=== PATIENT | male | born 1970 | race Hispanic/Latino ===

== ENCOUNTER 2022-02-12 11:33 | Inpatient (IN) | payer OTHER, SELFPAY ==
[2022-02-12] MEDS ORDERED: MORPHINE 4 MG/ML SYR ONE (12:17)
[2022-02-12] MEDS ORDERED: ONDANSETRON 4 MG/2 ML VIAL ONE ×2 (12:17→21:21)
[2022-02-12 12:32] LABS: Absolute Lymphocytes (CBC) 1.9 K/uL (0.7-4.9); Hematocrit 40.2 % (39.6-49.0); Lymphocytes % 32.8 % (15.3-44.8); MPV 7.7 fL (7.6-11.3); RBC Red Blood Cell Count 5.09 M/uL (4.33-5.43)
[2022-02-12] MEDS ORDERED: NA CHLORIDE 0.9% 1,000 ML ONE (12:40)
[2022-02-12 12:54] LABS: Bilirubin Total 0.3 mg/dL (0.2-1.0); Potassium 3.7 mmol/L (3.5-5.1); Protein, Total 7.2 g/dL (6.4-8.2)
--- NOTE | 2022-02-12 13:42 | RAD REPORT ---
EXAM DESCRIPTION: CT - Abdomen Pelvis W Contrast - 02/12/2022 1:25 pm CLINICAL HISTORY: Abd pain;Nausea / vomiting, technologist notes history of a pancreatic stent COMPARISON: No comparisons TECHNIQUE: Biphasic, helical CT imaging of the abdomen and pelvis was performed following 100 ml non -ionic IV contrast. No oral contrast was administered. All CT scans are performed using dose optimization technique as appropriate and may include automated exposure control or mA/KV adjustment according to patient size. FINDINGS: No suspicious findings in the lung bases. No liver abnormality seen. Portal vein enhances normally. Gallbladder and biliary tree within normal limits. The pancreatic tail extends into the splenic hilum. There is a 3 x 2 centimeter area of fluid or low -density at the pancreatic tail splenic hilum junction. The roughly wedge-shaped 3 centimeter area of diminished attenuation is present in the anterior portion of the spleen. A minimal amount of strandi ng is seen in the fat adjacent to the pancreatic tail. The uncinate process, head and body of the roderick l show no mass lesion or acute peripancreatic stranding. The pancreatic tail/splenic hilum changes ar e likely the sequela of prior pancreatitis. Small pseudocyst and focal scarring changes are likely. P atient probably has a small area of infarction within the spleen. There is a minimal amount of strand ing that extends from pancreatic tail the greater curvature of the stomach. A mild acute pancreatitis could still be present if there are corresponding clinical or laboratory findings. Symmetric renal function is seen with no hydronephrosis or suspicious renal mass. No pyelonephritis o r acute parenchymal process. No bladder abnormalities. Fullness of the left adrenal gland is present. In the anterior superior aspect of the right adrenal gland there is a 2.2 centimeter low-density mas s. This is probably an incidental adenoma though does not meet strict CT diagnostic criteria on this protocol. No urinary bladder abnormality seen. No gastric dilatation or gastric wall thickening seen. No dilated large or small bowel. Moderate stoo l volume present throughout the colon. Sigmoid diverticulosis is present without diverticulitis. Sigm oid is redundant. Surgical clips are present at the tip of the cecum. No free air, free fluid or pneumatosis. No inflammatory stranding seen. No hernia, mass or bulky l ymphadenopathy. Disc and bone degenerative changes are present in the lower lumbar spine. Mild SI joint degenerative changes are also seen. IMPRESSION: A 3 x 2 cm low-density or fluid collection is present in the splenic hilum at the tail o f the pancreas. There is a minimal amount of stranding in the surrounding peripancreatic tissues. Low-density area within the spleen is probably an area of infarction, sequela of a prior pancreatic t ail process. Current findings are most likely pseudocyst and scarring changes from prior pancreatitis. A minimal c omponent of acute pancreatitis cannot be excluded if there are any corresponding clinical or laborato ry findings. Small 2 centimeter right adrenal mass with incidental adenomas most likely etiology.
--- NOTE | 2022-02-12 14:28 | ER ---
Nurse's Notes [facility] Name: Magno Estrella III Age: 51 yrs Sex: Male : 1970 Arrival Date: 02/12/2022 Time: 11:35 Bed 6 Private MD: Diagnosis: Other acute pancreatitis without necrosis or infection;Vomiting;Dehydration Presentation: 02/12 11:41 Chief complaint: Patient states: "I had a cyst on my pancreas so they put a stent from ab2 the cyst into my stomach to drain about a year ago. Well 2 days ago the same area as the stent started hurting really bad and I've been vomiting, I cant keep nothing down.". Coronavirus screen: Vaccine status: Patient reports being unvaccinated. Client denies travel out of the [place] in the last 14 days. At this time, the client does not indicate any symptoms associated with coronavirus-19. Ebola Screen: Patient negative for fever greater than or equal to 101.5 degrees Fahrenheit, and additional compatible Ebola Virus Disease symptoms Patient denies exposure to infectious person. Patient denies travel to an Ebola-affected area in the 21 days before illness onset. No symptoms or risks identified at this time. Initial Sepsis Screen: Does the patient meet any 2 criteria? No. Patient's initial sepsis screen is negative. Does the patient have a suspected source of infection? No. Patient's initial sepsis screen is negative. Risk Assessment: Do you want to hurt yourself or someone else? Patient reports no desire to harm self or others. Onset of symptoms is unknown. 11:41 Method Of Arrival: Ambulatory ab2 11:41 Acuity: JACOBO 3 ab2 Triage Assessment: 11:43 General: Appears in no apparent distress. uncomfortable, Behavior is calm, cooperative, ab2 appropriate for age. Pain: Complains of pain in epigastric area and left upper quadrant Pain currently is 8 out of 10 on a pain scale. GI: Reports upper abdominal pain, intolerance of fluids, intolerance of food, nausea, vomiting. Historical: - Allergies: 11:41 No Known Allergies; ab2 - PMHx: 11:41 Diabetes mellitus; Pancreatitis; ab2 - Immunization history:: Adult Immunizations up to date, Client reports having NOT received the Covid vaccine. - Social history:: Smoking status: Patient denies any tobacco usage or history of. - Family history:: not pertinent. - Hospitalizations: : No recent hospitalization is reported. Screenin:58 Abuse screen: Denies threats or abuse. Nutritional screening: No deficits noted. ap3 Tuberculosis screening: No symptoms or risk factors identified. Fall Risk No fall in past 12 months (0 pts). No secondary diagnosis (0 pts). No IV (0 pts). Ambulatory Aid- None/Bed Rest/Nurse Assist (0 pts). Gait- Normal/Bed Rest/Wheelchair (0 pts) Mental Status- Oriented to own ability (0 pts). Total Ennis Fall Scale indicates No Risk (0-24 pts). Assessment: 12:00 General: Appears in no apparent distress. Pain: Complains of pain in left upper ap3 quadrant and epigastric area. Neuro: Level of Consciousness is awake, alert, obeys commands, Oriented to person, place, time, situation, Appropriate for age Gait is steady, Speech is normal. Cardiovascular: Patient's skin is warm and dry. Respiratory: Airway is patent Respiratory effort is even, unlabored. GI: Bowel sounds present X 4 quads. Abd is soft X 4 quads Abdomen is tender to palpation in epigastric area Reports upper abdominal pain, nausea, vomiting. 12:03 General: patient reports he has been able to tolerate fluids today, and hasn't vomited ap3 since yesterday. . 12:34 Reassessment: No changes from previously documented assessment. Pain: Pain currently is jg9 8 out of 10 on a pain scale. 14:30 Reassessment: Patient appears in no apparent distress at this time. Patient states jg9 feeling better. Patient states symptoms have improved. Vital Signs: 11:41 BP 145 / 94; Pulse 78; Resp 17; Temp 98.4(TE); Pulse Ox 99% on R/A; Weight 122.47 kg; ab2 Height 5 ft. 10 in. (177.80 cm); Pain 7/10; 13:02 BP 122 / 77; Pulse 70; Pulse Ox 94% on R/A; ap3 14:30 BP 140 / 93; Pulse 73; Resp 16; Pulse Ox 97% on R/A; Pain 5/10; jg9 15:30 BP 121 / 90; Pulse 70; Resp 14; Pulse Ox 98% on R/A; Pain 8/10; jg9 11:41 Body Mass Index 38.74 (122.47 kg, 177.80 cm) ab2 ED Course: 11:35 Patient arrived in ED. as 11:43 Triage completed. ab2 11:44 Arm band placed on right wrist. ab2 11:58 Patient has correct armband on for positive identification. Bed in low position. Call ap3 light in reach. Pulse ox on. NIBP on. 12:00 Lidya Smiley, NARA is Primary Nurse. ap3 12:07 Glen Cruz MD is Attending Physician. rn 12:19 Inserted saline lock: 20 gauge in right antecubital area, using aseptic technique. jg9 Blood collected. 12:34 Resting quietly. jg9 12:38 Flu Sent. ss7 13:27 CT Abd/Pelvis - IV Contrast Only In Process Unspecified. EDMS 14:26 Jose Hayward is Hospitalizing Provider. rn 15:40 Patient requests pain medication. jg9 19:18 Primary Nurse role handed off by Lidya Smiley RN 2 20:04 Danya Canela, NARA is Primary Nurse. lg3 23:15 No provider procedures requiring assistance completed. Patient admitted, IV remains in kd3 place. Administered Medications: 12:22 Drug: Zofran (Ondansetron) 4 mg Route: IVP; Site: right antecubital; jg9 13:23 Follow up: Response: No adverse reaction jg9 12:34 Drug: NS 0.9% 1000 ml Route: IV; Rate: 1000 ml; Site: left antecubital; jg9 12:35 Drug: morphine 4 mg Route: IVP; Site: right antecubital; jg9 13:23 Follow up: Response: No adverse reaction; Pain is decreased jg9 Outcome: 14:27 Decision to Hospitalize by Provider. rn 23:15 Admitted to ICU accompanied by nurse, via wheelchair, room 7, Report called to icu kd3 23:15 Condition: stable 23:15 Discharge instructions given to patient, Instructed on the need for admit. 23:15 Patient left the ED. kd3 Signatures: Dispatcher [employer] EDMonik Aguilar Roman, MD MD rn Prokisch, Amanda, RN RN 3 Delicia Chavis 2 Danya Canela, RN RN 3 Brianna Bull, RN RN kd3 Shanice Bragg, RN RN jg9 Ricardo Milner Shana, RN RN ss7
--- NOTE | 2022-02-12 14:28 | EDPHYS ---
Physician Documentation [facility] Name: Magno Estrella III Age: 51 yrs Sex: Male : 1970 Arrival Date: 02/12/2022 Time: 11:35 Bed 6 Private MD: ED Physician Glen Cruz HPI: 02/12 12:41 This 51 yrs old Male presents to ER via Ambulatory with complaints of rn Abdominal Pain, Vomiting. 12:41 The patient presents to the emergency department with nausea, vomiting, abdominal pain. rn Onset: The symptoms/episode began/occurred 2 day(s) ago. Possible causes: unknown. The symptoms are aggravated by pressure, The symptoms are alleviated by nothing. Associated signs and symptoms: Pertinent positives: abdominal pain, anorexia, nausea, vomiting, Pertinent negatives: GI bleeding. Severity of symptoms: At their worst the symptoms were moderate in the emergency department the symptoms are unchanged. The patient has experienced a previous episode. The patient has not recently seen a physician. Pt reports 2 days of upper abd pain, nausea/vomiting. Hx of pancreatitis with stent "to drain cyst" last year. No episodes since then. no known sick contacts. No fever. NO diarrhea. . Historical: - Allergies: 11:41 No Known Allergies; ab2 - PMHx: 11:41 Diabetes mellitus; Pancreatitis; ab2 - Immunization history:: Adult Immunizations up to date, Client reports having NOT received the Covid vaccine. - Social history:: Smoking status: Patient denies any tobacco usage or history of. - Family history:: not pertinent. - Hospitalizations: : No recent hospitalization is reported. ROS: 12:41 Constitutional: Negative for fever, chills, and weight loss, Eyes: Negative for injury, rn pain, redness, and discharge, Neck: Negative for injury, pain, and swelling, Cardiovascular: Negative for chest pain, palpitations, and edema, Respiratory: Negative for shortness of breath, cough, wheezing, and pleuritic chest pain, Abdomen/GI: Negative for diarrhea, and constipation, Back: Negative for injury and pain, MS/Extremity: Negative for injury and deformity, Skin: Negative for injury, rash, and discoloration, Neuro: Negative for headache, weakness, numbness, tingling, and seizure. Exam: 12:41 Constitutional: This is a well developed, well nourished patient who is awake, alert, rn and in no acute distress. Head/Face: Normocephalic, atraumatic. ENT: dry MM Cardiovascular: Regular rate and rhythm. No pulse deficits. Respiratory: No increased work of breathing, no retractions or nasal flaring. Abdomen/GI: soft, + epigastric abd tenderness, no rebound Skin: Warm, dry MS/ Extremity: Pulses equal, no cyanosis. Neuro: Awake and alert, GCS 15 Vital Signs: 11:41 BP 145 / 94; Pulse 78; Resp 17; Temp 98.4(TE); Pulse Ox 99% on R/A; Weight 122.47 kg; ab2 Height 5 ft. 10 in. (177.80 cm); Pain 7/10; 13:02 BP 122 / 77; Pulse 70; Pulse Ox 94% on R/A; ap3 14:30 BP 140 / 93; Pulse 73; Resp 16; Pulse Ox 97% on R/A; Pain 5/10; jg9 15:30 BP 121 / 90; Pulse 70; Resp 14; Pulse Ox 98% on R/A; Pain 8/10; jg9 11:41 Body Mass Index 38.74 (122.47 kg, 177.80 cm) ab2 MDM: 12:07 Patient medically screened. rn 14:17 ED course: Consulted with Dr. Stevens, states ok to keep here, does not believe he rn needs intervention, will admit to hospitalist service. Requests lipid panel/triglycerides. . 14:25 Differential diagnosis: Nonspecific abd pain, gastritis, pancreatitis, viral rn gastroenteritis, gastroenteritis. Data reviewed: vital signs, nurses notes, lab test result(s), radiologic studies, CT scan, and as a result, I will admit patient. Counseling: I had a detailed discussion with the patient and/or guardian regarding: the historical points, exam findings, and any diagnostic results supporting the discharge/admit diagnosis, lab results, radiology results, the need for further work-up and treatment in the hospital. Response to treatment: the patient's symptoms have mildly improved after treatment, and as a result, I will admit patient. Admission orders: after a detailed discussion of the patient's condition and case, the admit orders are written by me. 02/12 12:08 Order name: CBC with Diff; Complete Time: 13:31 rn 02/12 12:08 Order name: CMP; Complete Time: 13:31 rn 02/12 12:08 Order name: Lipase; Complete Time: 13:31 rn 02/12 12:25 Order name: Flu; Complete Time: 13:31 rn 02/12 14:12 Order name: Lipid Profile; Complete Time: 17:17 rn 02/12 14:17 Order name: COVID-19/FLU A+B (Document "Date of Onset" if Symptomatic); Complete Time: rn 17:17 02/12 12:08 Order name: CT Abd/Pelvis - IV Contrast Only; Complete Time: 13:44 rn 02/12 15:53 Order name: LDL, Direct; Complete Time: 17:17 EDMS 02/12 19:21 Order name: Glucose, Ancillary Testing EDNY 02/12 20:32 Order name: Basic Metabolic Panel EDNY 02/12 21:54 Order name: Glucose, Ancillary Testing EDNY 02/12 23:06 Order name: Glucose, Ancillary Testing EDMS 02/12 12:08 Order name: IV Saline Lock; Complete Time: 12:24 rn 02/12 12:08 Order name: Labs collected and sent; Complete Time: 12:24 rn Administered Medications: 12:22 Drug: Zofran (Ondansetron) 4 mg Route: IVP; Site: right antecubital; jg9 13:23 Follow up: Response: No adverse reaction jg9 12:34 Drug: NS 0.9% 1000 ml Route: IV; Rate: 1000 ml; Site: left antecubital; jg9 12:35 Drug: morphine 4 mg Route: IVP; Site: right antecubital; jg9 13:23 Follow up: Response: No adverse reaction; Pain is decreased jg9 Disposition Summary: 02/12/22 14:27 Hospitalization Ordered Hospitalization Status: Inpatient Admission rn Provider: Jose Hayward rn Condition: Stable rn Problem: new rn Symptoms: have improved rn Bed/Room Type: Standard rn Location: Intensive Care Unit(02/12/22 22:16) cg Room Assignment: 7-(02/12/22 22:16) cg Diagnosis - Other acute pancreatitis without necrosis or infection rn - Vomiting rn - Dehydration rn Forms: - Medication Reconciliation Form rn - SBAR form rn Signatures: Dispatcher [employer] EDMS DirriTiesha story Roman, MD MD rn Garcia, Cindy, RN RN cg Shanice Bragg RN RN jg9 Ricardo Milner Corrections: (The following items were deleted from the chart) 14: Telemetry/MedSurg (Inpatient) rn bd 18: 14: [place] bd : 18: [facility] ER HOLD bd : 18:01 ERHOLD- bd cg
[2022-02-12 15:48] LABS: HDL Cholesterol 31 mg/dL (40-60)
[2022-02-12 15:59] LABS: LDL, Direct 147 mg/dL (100-129)
--- NOTE | 2022-02-12 16:26 | P.HP ---
Certification for Inpatient Patient admitted to: Inpatient With expected LOS: >2 Midnights Practitioner: I am a practitioner with admitting privileges, knowledge of patient current condition, hospital course, and medical plan of care. Services: Services provided to patient in accordance with Admission requirements found in Title 42 Section 412.3 of the Code of Federal Regulations Patient History Date of Service: 02/12/22 Reason for admission: Epigastric pain History of Present Illness: 51-year-old gentleman with a known history of diabetes mellitus type 2, hereditary hypertriglyceridemia, history of pancreatitis complicated with pseudocyst, status post stent/drain presented to the emergency department with a complaint of epigastric pain of onset last night. Patient was concerned he was having another episode of acute pancreatitis. He reported associated nausea and vomiting, no reported fever. Imaging done in the emergency department demonstrated inflammation of the tail of the pancreas, 3 cm pseudocyst and a possible small splenic infarct. Case discussed with Dr. Stevnes will suspect pseudocyst is a remnant of the previous cyst. Patient triglyceride level is elevated up to 900, lipase level within normal. Patient is admitted for further management of hypertriglyceride induced acute pancreatitis. - Past Medical/Surgical History Diabetic: Yes -: Diabetes mellitus type 2 -: Hypertriglyceridemia -: Hypertension -: History of pancreatitis -: Pancreatic pseudocyst drainage - Family History Father -: Diabetes Mother -: Diabetes - Social History Smoking Status: Former smoker Alcohol use: No CD- Drugs: No Place of Residence: Home Review of Systems Other: Except as documented, all other systems reviewed and negative. Physical Examination - Physical Exam General: Alert, In no apparent distress, Oriented x3 HEENT: Normocephalic, Mucous membr. moist/pink, Sclerae nonicteric Neck: Supple, JVD not distended Respiratory: Clear to auscultation bilaterally, Normal air movement Cardiovascular: No edema, Regular rate/rhythm, Normal S1 S2, No murmurs Capillary refill: <2 Seconds Gastrointestinal: Normal bowel sounds, Soft and benign, Non-distended, No tenderness Musculoskeletal: No swelling, No tenderness Integumentary: No rashes, No erythema, No cyanosis Neurological: Normal speech, Normal strength at 5/5 x4 extr, Cranial nerves 3-12 intact Lymphatics: No axilla or inguinal lymphadenopathy - Studies Laboratory Data (last 24 hrs) 02/12/22 15:05: Triglycerides 919 H, Cholesterol 283 H, LDL Cholesterol Direct 147 H, HDL Cholesterol 31 L, Cholesterol/HDL Ratio 9.13 02/12/22 12:20: Sodium 129 L, Potassium 3.7, BUN 12, Creatinine 1.01, Glucose 548 H*, Total Bilirubin 0.3, AST 14 L, ALT 24, Alkaline Phosphatase 107, Lipase 124 02/12/22 12:20: WBC 5.90, Hgb 13.2 L, Hct 40.2, Plt Count 214 Microbiology Data (last 24 hrs): 02/12/22 12:35 Nasopharnyx Influenza Type A Antigen Screen - Final 02/12/22 12:35 Nasopharnyx Influenza Type B Antigen Screen - Final Assessment and Plan - Problems (Diagnosis) (1) Acute pancreatitis Current Visit: Yes Status: Acute (2) Hypertriglyceridemia Current Visit: Yes Status: Acute (3) DM type 2 (diabetes mellitus, type 2) Current Visit: Yes Status: Acute (4) Morbid obesity Current Visit: Yes Status: Acute - Plan Admit patient to the ICU. Acute pancreatitis likely secondary to hypertriglyceridemia. Patient noncompliant with his gemfibrozil. Start insulin drip for severe hypertriglyceridemia. Monitor triglyceride level daily Monitor blood sugar every hour while on the insulin drip Supportive measures for acute pancreatitis. Keep n.p.o. Aggressive IV fluid. Hold Metformin for now. Monitor lipase level. Empiric antibiotics. - Advance Directives Does patient have a Living Will: No Does patient have a Durable POA for Healthcare: No
[2022-02-12 17:14] LABS: SARS-COV-2 RT PCR NEGATIVE (NEGATIVE)
[2022-02-12] MEDS ORDERED: MORPHINE 2 MG/ML SYR IV PRN (18:46)
[2022-02-12] MEDS ORDERED: NA CHLORIDE 0.9% 1,000 ML IV ONE (18:46)
[2022-02-12] MEDS ORDERED: ONDANSETRON 4 MG/2 ML VIAL IV PRN (18:46)
[2022-02-12] MEDS ORDERED: ACETAMINOPHEN 500 MG TAB PO PRN (18:46)
[2022-02-12] MEDS ORDERED: MORPHINE 2 MG/ML SYR ONE (18:53)
[2022-02-12 19:00] VITALS: BMI 37.6
[2022-02-12] MEDS ORDERED: INSULIN -REGULAR HUMAN 100 UNIT in NA CHLORIDE 0.9% 100 ML IV SCH (19:00)
[2022-02-12 20:32] LABS: BUN Blood Urea Nitrogen 10 mg/dL (7-18); Bicarbonate 29 mmol/L (21-32); Glucose Level 277 mg/dL (74-106); Potassium 3.5 mmol/L (3.5-5.1); Sodium Level 135 mmol/L (136-145)
[2022-02-12] MEDS ORDERED: HYDROMORPHONE HCL 0.5 MG/0.5 ML INJ ONE (21:21)
[2022-02-12] MEDS: HYDROMORPHONE HCL 1 MG/ML INJ IV PRN (21:23)
[2022-02-12] MEDS: NA CHLORIDE 0.9% 1,000 ML IV SCH (23:37)
[2022-02-12] MEDS: ENOXAPARIN 40 MG/0.4 ML SQ SCH (23:38)
[2022-02-12] MEDS: CEFTRIAXONE 1,000 MG in NA CHLORIDE 0.9% 50 ML IVPB SCH (23:38)
[2022-02-13 00:28] VITALS: O2SAT 98
[2022-02-13] MEDS: HYDROMORPHONE HCL 1 MG/ML INJ IV PRN ×5 (01:25→20:35)
[2022-02-13] MEDS: NA CHLORIDE 0.9% 1,000 ML IV SCH ×2 (02:46→09:10)
[2022-02-13] MEDS ORDERED: INSULIN -REGULAR HUMAN 50 UNIT/0.5 ML ML ONE (05:16)
[2022-02-13] MEDS ORDERED: NA CHLORIDE 0.9% 100 ML ONE (05:17)
[2022-02-13 05:18] LABS: Absolute Lymphocytes (CBC) 2.5 K/uL (0.7-4.9); Hematocrit 37.7 % (39.6-49.0); Lymphocytes % 43.4 % (15.3-44.8); MPV 7.7 fL (7.6-11.3); RBC Red Blood Cell Count 4.82 M/uL (4.33-5.43)
[2022-02-13 05:40] LABS: BUN Blood Urea Nitrogen 9 mg/dL (7-18); Bicarbonate 31 mmol/L (21-32); Glucose Level 359 mg/dL (74-106); Phosphorus 3.3 mg/dL (2.5-4.9); Sodium Level 136 mmol/L (136-145)
[2022-02-13 05:41] LABS: Magnesium 2.2 mg/dL (1.8-2.4)
[2022-02-13 06:00] LABS: LDL, Direct 120 mg/dL (100-129)
[2022-02-13] MEDS ORDERED: INFLUENZA VACCINE (for 6+ mo) 0.5 ML DOSE IMVAC ONE (08:00)
[2022-02-13] MEDS: ENOXAPARIN 40 MG/0.4 ML SQ SCH (09:09)
[2022-02-13] MEDS: CEFTRIAXONE 1,000 MG in NA CHLORIDE 0.9% 50 ML IVPB SCH (09:09)
[2022-02-13] MEDS: D5 0.9 NS 1,000 ML IV SCH ×2 (09:59→22:25)
--- NOTE | 2022-02-13 12:37 | P.PN ---
Subjective Date of Service: 02/13/22 Chief Complaint: Epigastric pain Patient was supposed to be n.p.o. but he ate a [employer] sandwich last night. No abdominal pain or discomfort after eating the sandwich. Lipase level was normal on admission. Triglyceride level trended up despite being on insulin drip. He is complaining of some epigastric discomfort this morning. Physical Examination - Vital Signs Temperature: 96.7 F Blood Pressure: 144/90 Pulse: 63 Respirations: 18 Pulse Ox (%): 99 - Physical Exam General: Alert, In no apparent distress, Oriented x3, Obese HEENT: Mucous membr. moist/pink Neck: JVD not distended Respiratory: Clear to auscultation bilaterally, Normal air movement Cardiovascular: Regular rate/rhythm, Normal S1 S2 Gastrointestinal: Normal bowel sounds, Soft and benign, Non-distended, No tenderness Musculoskeletal: No swelling, No tenderness Integumentary: No rashes, No cyanosis Neurological: Normal strength at 5/5 x4 extr, Cranial nerves 3-12 intact - Studies Laboratory Data (last 24 hrs) 02/12/22 15:05: Triglycerides 919 H, Cholesterol 283 H, LDL Cholesterol Direct 147 H, HDL Cholesterol 31 L, Cholesterol/HDL Ratio 9.13 02/12/22 12:20: Sodium 129 L, Potassium 3.7, BUN 12, Creatinine 1.01, Glucose 548 H*, Total Bilirubin 0.3, AST 14 L, ALT 24, Alkaline Phosphatase 107, Lipase 124 02/12/22 12:20: WBC 5.90, Hgb 13.2 L, Hct 40.2, Plt Count 214 Microbiology Data (last 24 hrs): 02/12/22 12:35 Nasopharnyx Influenza Type A Antigen Screen - Final 02/12/22 12:35 Nasopharnyx Influenza Type B Antigen Screen - Final Assessment And Plan - Current Problems (Diagnosis) (1) Acute pancreatitis Current Visit: Yes Status: Acute (2) Hypertriglyceridemia Current Visit: Yes Status: Acute (3) DM type 2 (diabetes mellitus, type 2) Current Visit: Yes Status: Acute (4) Morbid obesity Current Visit: Yes Status: Acute - Plan Acute pancreatitis likely secondary to hypertriglyceridemia. Symptoms have improved. Hypertriglyceridemia has not responded to insulin drip. Patient stated his baseline triglyceride level is around 1200. Continue insulin drip, check another triglyceride level tonight for any response. Keep n.p.o. except ice chips and water on the insulin drip Monitor blood sugar every hour while on the insulin drip Continue supportive measures for acute pancreatitis. Hold Metformin for now. Monitor lipase level. Discontinue antibiotics.
[2022-02-13 18:08] LABS: BUN Blood Urea Nitrogen 9 mg/dL (7-18); Bicarbonate 27 mmol/L (21-32); Glucose Level 249 mg/dL (74-106); Potassium 3.7 mmol/L (3.5-5.1); Sodium Level 135 mmol/L (136-145)
[2022-02-13 19:03] LABS: LDL, Direct 124 mg/dL (100-129)
[2022-02-13] MEDS: HYDRALAZINE HCL 10 MG TABLET PO PRN (22:43)
[2022-02-14] MEDS: HYDROMORPHONE HCL 1 MG/ML INJ IV PRN (00:27)
[2022-02-14 04:18] VITALS: TEMP 96.9
[2022-02-14 05:38] LABS: BUN Blood Urea Nitrogen 6 mg/dL (7-18); Bicarbonate 29 mmol/L (21-32); Glucose Level 262 mg/dL (74-106); Potassium 3.3 mmol/L (3.5-5.1); Sodium Level 136 mmol/L (136-145)
[2022-02-14 05:45] LABS: LDL, Direct 129 mg/dL (100-129)
[2022-02-14] MEDS ORDERED: KCL 20 MEQ/100 mL IVPB 20 MEQ/100 ML BAG IV SCH (07:00)
[2022-02-14] MEDS ORDERED: POTASSIUM 25 MEQ EFFERV TAB PO ONE (08:00)
[2022-02-14] MEDS: ENOXAPARIN 40 MG/0.4 ML SQ SCH (09:00)
[2022-02-14] MEDS: HYDRALAZINE HCL 10 MG TABLET PO PRN (12:57)
[2022-02-14] MEDS ORDERED: INSULIN GLARGINE 100 UNIT/ML SQ ONE (13:00)
--- NOTE | 2022-02-14 14:52 | P.DS ---
Admission Date: 02/12/22 Discharge Date: 02/14/22 Disposition: ROUTINE DISCHARGE Discharge Condition: FAIR Reason for Admission: Epigastric pain - Problems (1) Acute pancreatitis Current Visit: Yes Status: Acute (2) Hypertriglyceridemia Current Visit: Yes Status: Acute (3) DM type 2 (diabetes mellitus, type 2) Current Visit: Yes Status: Acute (4) Morbid obesity Current Visit: Yes Status: Acute Brief History of Present Illness: 51-year-old gentleman with a known history of diabetes mellitus type 2, hereditary hypertriglyceridemia, history of pancreatitis complicated with pseudocyst, status post stent/drain presented to the emergency department with a complaint of epigastric pain of onset last night. Patient was concerned he was having another episode of acute pancreatitis. He reported associated nausea and vomiting, no reported fever. Imaging done in the emergency department demonstrated inflammation of the tail of the pancreas, 3 cm pseudocyst and a possible small splenic infarct. Case discussed with Dr. Stevens will suspect pseudocyst is a remnant of the previous cyst. Patient triglyceride level is elevated up to 900, lipase level within normal. Patient is admitted for further management of hypertriglyceride induced acute pancreatitis. Hospital Course: Patient admitted to the ICU and started on insulin drip for the severe hypertriglyceridemia. He was also treated with supportive measures with IV fluid, pain medications as needed and antiemetics and and kept n.p.o. for acute pancreatitis. Lipase level was normal. Patient's triglyceride level responded to the insulin drip and level peaked at 1200 and then decreased to 600. Patient symptoms resolved. He tolerated meals without any symptoms. He states that he has improved to baseline, vitals are stable and he is deemed stable for discharge.. Patient given a refill of gemfibrozil. He is informed to continue his home insulin regimen and advised to be compliant with medication and blood sugar monitoring. Vital Signs/Physical Exam: Temp Pulse Resp BP Pulse Ox 96.9 F 79 14 131/90 98 02/14/22 08:00 02/14/22 12:00 02/14/22 12:00 02/14/22 11:00 02/14/22 12:00 General: Alert, In no apparent distress, Oriented x3 HEENT: Mucous membr. moist/pink Neck: JVD not distended Respiratory: Clear to auscultation bilaterally, Normal air movement Cardiovascular: No edema, Regular rate/rhythm, Normal S1 S2 Gastrointestinal: Normal bowel sounds, Soft and benign, Non-distended, No tenderness Musculoskeletal: No swelling Integumentary: No rashes Neurological: Normal strength at 5/5 x4 extr Laboratory Data at Discharge: WBC 5.70 K/uL (4.3-10.9) 02/13/22 04:47 Hgb 12.5 g/dL (13.6-17.9) L 02/13/22 04:47 Hct 37.7 % (39.6-49.0) L 02/13/22 04:47 Plt Count 177 K/uL (152-406) 02/13/22 04:47 Sodium 136 mmol/L (136-145) 02/14/22 05:01 Potassium 3.3 mmol/L (3.5-5.1) L 02/14/22 05:01 BUN 6 mg/dL (7-18) L 02/14/22 05:01 Creatinine 0.63 mg/dL (0.55-1.3) 02/14/22 05:01 Glucose 262 mg/dL (74-106) H 02/14/22 05:01 Phosphorus 3.3 mg/dL (2.5-4.9) 02/13/22 04:47 Magnesium 2.2 mg/dL (1.8-2.4) 02/13/22 04:47 Total Bilirubin 0.3 mg/dL (0.2-1.0) 02/12/22 12:20 AST 14 U/L (15-37) L 02/12/22 12:20 ALT 24 U/L (12-78) 02/12/22 12:20 Alkaline Phosphatase 107 U/L (45-117) 02/12/22 12:20 Triglycerides 608 mg/dL (<150) H 02/14/22 05:01 Cholesterol 283 mg/dL (<200) H 02/12/22 15:05 LDL Cholesterol Direct 129 mg/dL (100-129) 02/14/22 05:01 HDL Cholesterol 31 mg/dL (40-60) L 02/12/22 15:05 Cholesterol/HDL Ratio 9.13 02/12/22 15:05 Lipase 124 U/L (73-393) 02/12/22 12:20 Home Medications: Insulin 70/30 NPH/Reg Human [Novolin 70/30*] 55 unit SQ DAILY 02/12/22 Metformin HCl 1 tab PO BID 02/12/22 Lisinopril [Zestril] 20 mg PO DAILY 02/13/22 gemfibroziL [Gemfibrozil] 600 mg PO BID #60 tablet 02/14/22 New Medications: gemfibroziL [Gemfibrozil] 600 mg PO BID #60 tablet Diet: ADA Activity: Ad la Followup: NONE,NONE [Primary Care Provider] - 1-2 Weeks Time spent managing pt's care (in minutes): 37
[2022-02-14 15:11] VITALS: BP 152/98
== END 2022-02-14 16:00 | disposition home or self-care (01) | DRG 439 ==
LOC: ER 11:33 → ERHOLD 16:08 → 3RD-ICU 22:47
PROVIDERS: ADMIT Internal Medicine; ATTEND Internal Medicine
DX: K85.90 Acute pancreatitis without necrosis or infection, unspecified (principal); K86.3 Pseudocyst of pancreas; E78.1 Pure hyperglyceridemia; E11.9 Type 2 diabetes mellitus without complications; E66.01 Morbid (severe) obesity due to excess calories; Z68.35 Body mass index [BMI] 35.0-35.9, adult; Z20.822 Contact with and (suspected) exposure to COVID-19; Z91.14 Patient's other noncompliance with medication regimen; Z79.4 Long term (current) use of insulin
CPT/HCPCS: 0240U; 36415; 74177; 80048; 80053; 80061; 82947; 83690; 83735; 84100; 84443; 84478; 85025; 87804; 96374; 96375; 99285; J1170; J1650; J2270; J2405; J7030; J7042; Q9967

== ENCOUNTER 2022-03-27 19:10 | Emergency (ER) | payer SELFPAY ==
[2022-03-27] MEDS ORDERED: NA CHLORIDE 0.9% 1,000 ML ONE (20:11)
[2022-03-27] MEDS ORDERED: FAMOTIDINE 20 MG/2 ML VIAL IV ONE (20:11)
[2022-03-27] MEDS ORDERED: MORPHINE 4 MG/ML SYR ONE ×2 (20:11→21:56)
[2022-03-27] MEDS ORDERED: ONDANSETRON 4 MG/2 ML VIAL ONE (20:11)
[2022-03-27 20:37] LABS: Absolute Lymphocytes (CBC) 1.9 K/uL (0.7-4.9); Hematocrit 41.9 % (39.6-49.0); Lymphocytes % 24.9 % (15.3-44.8); MPV 7.3 fL (7.6-11.3); RBC Red Blood Cell Count 5.42 M/uL (4.33-5.43)
[2022-03-27 20:53] LABS: ALT/SGPT 19 U/L (12-78); AST/SGOT 12 U/L (15-37); Albumin 3.8 g/dL (3.4-5.0); Alkaline Phosphatase 109 U/L (45-117); BUN Blood Urea Nitrogen 11 mg/dL (7-18); Bicarbonate 26 mmol/L (21-32); Bilirubin Total 0.4 mg/dL (0.2-1.0); Glucose Level 267 mg/dL (74-106); Lipase 403 U/L (73-393); Magnesium 2.1 mg/dL (1.8-2.4); Potassium 3.8 mmol/L (3.5-5.1); Sodium Level 135 mmol/L (136-145); Troponin High Sensitivity 5.5 pg/mL (<58.9)
--- NOTE | 2022-03-27 21:08 | RAD REPORT ---
EXAM DESCRIPTION: CTAbdomen Pelvis W Contrast - 03/27/2022 8:43 pm CLINICAL HISTORY: Epigastric pain COMPARISON: Abdomen Pelvis W Contrast dated 02/12/2022 TECHNIQUE: CT of the abdomen and pelvis was performed. All CT scans are performed using dose optimization technique as appropriate and may include automated exposure control or mA/KV adjustment according to patient size. FINDINGS: Lower chest: No acute abnormality. Liver: No acute abnormality or suspicious lesions. Biliary: No biliary ductal dilatation. Stomach: There is thickening of the gastric wall in particular along the greater curvature. Loculated fluid also present along the pancreatic tail and inferior margin in the stomach. No drainable collec tion. Duodenum: No significant focal abnormality. Pancreas: No evidence of acute pancreatitis. Fluid collection near the tail of the pancreas along the stomach. Spleen: Small remote splenic infarct. Trace fluid along the spleen. Adrenal: 2.3 cm right adrenal nodules unchanged. Kidney/ureter: No hydronephrosis. No renal calculi. Retroperitoneum: No retroperitoneal adenopathy. Vascular: No aneurysm. Bowel: Appendectomy. Multiple air-fluid levels in the central abdomen. None measure over 2 cm. .. Peritoneum: No ascites or free air. Bladder: Grossly unremarkable. Reproductive: No adnexal masses. Bones: No acute fracture. Other: n/a IMPRESSION: Diffusely thickened gastric body with small complex fluid collections along the lower ma rgin of the stomach. The fluid collections could be secondary to pancreatitis and pseudocysts or seco ndary to pathology at the stomach. Recommend endoscopy for further evaluation. Small bowel dilatation without transition point likely representing ileus. Indeterminate right adrenal nodule is unchanged. Statistically this is benign.
[2022-03-27 21:40] LABS: Urine Blood Trace-intact (Negative); Urine Glucose 2+ (Negative); Urine Protein Negative (Negative); Urine Specific Gravity 1.025 (1.005-1.030)
[2022-03-27 22:22] LABS: Barbiturates NEGATIVE (NEGATIVE); Benzodiazepines NEGATIVE (NEGATIVE); Cocaine POSITIVE (NEGATIVE); METHAMPHETAM NEGATIVE (NEGATIVE); Methadone NEGATIVE (NEGATIVE); Opiates NEGATIVE (NEGATIVE); Phencyclidine NEGATIVE (NEGATIVE); THC Cannibis POSITIVE (NEGATIVE)
[2022-03-27 22:27] LABS: Urine Bacteria <20 /HPF (NONE SEEN)
--- NOTE | 2022-03-27 22:43 | EDPHYS ---
Physician Documentation [facility] Name: Magno Estrella III Age: 51 yrs Sex: Male : 1970 Arrival Date: 03/27/2022 Time: 19:12 Bed 8 Private MD: ED Physician José Miguel Rooney HPI: 03/27 19:35 This 51 yrs old Male presents to ER via Ambulatory with complaints of Nausea, cp Abdominal Pain. 19:35 The patient presents to the emergency department with nausea, that is moderate, cp vomiting, that is intermittent, described as bilious, abdominal pain, of the epigastric area. Onset: The symptoms/episode began/occurred yesterday, and became worse today. 19:35 Associated signs and symptoms: Pertinent negatives: constipation, diarrhea, fever, GI cp bleeding. 19:35 Patient reports history of pancreatitis in the past but denies due to alcohol use. cp Patient reports using cocaine 3 days ago. Nausea and vomiting started yesterday at work. Thought it was due to working outside in heat. Historical: - Allergies: 19:24 No Known Allergies; lp1 - Home Meds: 19:24 insulin 70/30 55 unit daily [Active]; metformin 1,000 mg Oral tab 1 tab daily [Active]; lp1 lisinopril 20 mg Oral tab 1 tab once daily [Active]; - PMHx: 19:24 diabetes mellitus; Hypertensive disorder; Pancreatitis; High Triglycerides; lp1 - PSHx: 19:24 None; lp1 - Immunization history:: Adult Immunizations up to date. - Social history:: Smoking status: Patient denies any tobacco usage or history of. Patient uses street drugs, marijuana. ROS: 19:40 Constitutional: Negative for body aches, chills, fever, poor PO intake. cp 19:40 Abdomen/GI: Positive for abdominal pain, nausea, vomiting, of the epigastric area, Negative for diarrhea, constipation, hematemesis. 19:40 Cardiovascular: Positive for chest pain, Negative for palpitations. cp 19:40 Eyes: Negative for injury, pain, redness, and discharge. cp 19:40 ENT: Negative for drainage from ear(s), ear pain, sore throat, difficulty swallowing, difficulty handling secretions. 19:40 Respiratory: Negative for cough, shortness of breath, wheezing. 19:40 Back: Negative for injury or acute deformity, decreased range of motion. 19:40 Neuro: Negative for altered mental status, dizziness, headache, weakness. 19:40 All other systems are negative. Exam: 19:45 Constitutional: The patient appears in no acute distress, alert, awake, cp non-diaphoretic, non-toxic, well developed, well nourished. 19:45 Head/Face: Normocephalic, atraumatic. cp 19:45 Eyes: Periorbital structures: appear normal, Conjunctiva: normal, no exudate, no injection, Sclera: no appreciated abnormality, Lids and lashes: appear normal, bilaterally. 19:45 ENT: External ear(s): are unremarkable, Nose: is normal, Mouth: Lips: moist, Oral mucosa: moist, Posterior pharynx: Airway: no evidence of obstruction, patent. 19:45 Neck: ROM/movement: is normal, is supple, without pain, no range of motions limitations. 19:45 Chest/axilla: Inspection: normal, Palpation: is normal, no crepitus, no tenderness. 19:45 Cardiovascular: Rate: normal, Rhythm: regular. 19:45 Respiratory: the patient does not display signs of respiratory distress, Respirations: normal, no use of accessory muscles, no retractions, labored breathing, is not present, Breath sounds: are clear throughout, no decreased breath sounds, no stridor, no wheezing. 19:45 Abdomen/GI: Inspection: abdomen appears normal, Bowel sounds: active, all quadrants, Palpation: soft, in all quadrants, moderate abdominal tenderness, in the epigastric area, rebound tenderness, is not appreciated, voluntary guarding, is elicited in the epigastric area. 19:45 Back: CVA tenderness, is absent. 19:45 Neuro: Orientation: to person, place \T\ time. Mentation: is normal, Motor: moves all fours, strength is normal. 20:17 ECG was reviewed by the Attending Physician. cp Vital Signs: 19:23 BP 163 / 103; Pulse 97; Resp 18; Temp 98.5(O); Pulse Ox 100% on R/A; Weight 110.68 kg; lp1 Height 5 ft. 11 in. (180.34 cm); Pain 10/10; 20:31 BP 171 / 99; Pulse 78; Resp 16; Pulse Ox 100% on R/A; ll3 21:57 BP 157 / 97; Pulse 80; Resp 17; Pulse Ox 98% on R/A; ll3 19:23 Body Mass Index 34.03 (110.68 kg, 180.34 cm) lp1 MDM: 19:16 Patient medically screened. sharon 20:00 Differential diagnosis: gastritis, cholecystitis, pancreatitis, appendicitis, cp diverticulitis, viral gastroenteritis, gastroenteritis. 22:42 Data reviewed: vital signs, nurses notes, lab test result(s), radiologic studies, CT cp scan, I have discussed the patient's presentation/case with the attending Emergency Department Physician; and as a result, I will discharge patient. 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 22:42 Response to treatment: the patient's symptoms have markedly improved after treatment, cp VSS. Nausea and pain markedly improved. No vomiting observed while monitoring patient in ED. Will discharge to home for continued monitoring. 03/27 19:40 Order name: CBC with Diff; Complete Time: 20:53 cp 03/27 20:53 Interpretation: Normal except: MCV 77.4; MCH 25.8; RDW 15.9; MPV 7.3. cp 03/27 19:40 Order name: CMP; Complete Time: 20:54 cp 03/27 20:54 Interpretation: Normal except: NA 135; GLUC 267; AST 12; A/G 0.9; GLOB 4.2. cp 03/27 19:40 Order name: Lipase; Complete Time: 20:54 cp 05 20:54 Interpretation: Abnormal: LIP 403. cp 03/27 19:40 Order name: Urine Microscopic Only; Complete Time: 22:28 cp / 22:28 Interpretation: Normal except: URBC 5-10. cp 03/27 19:40 Order name: Troponin HS; Complete Time: 20:54 cp 05 20:54 Interpretation: Reviewed. cp 03/27 19:40 Order name: UDS; Complete Time: 22:28 cp 05/05 22:28 Interpretation: Normal except: BARBARA POSITIVE; THC POSITIVE. cp 05/05 19:40 Order name: CT Abd/Pelvis - IV Contrast Only; Complete Time: 21:18 cp 05/05 19:40 Order name: Magnesium; Complete Time: 21:18 cp 05/05 21:34 Order name: CREATININE WHOLE BLOOD; Complete Time: 21:46 EDMS /05 21:41 Order name: Urine Dipstick-Ancillary; Complete Time: 21:46 EDMS 05/05 22:16 Interpretation: Normal except: UGLUC 2+; UKET 2+; UBLD Trace-intact. cp 05/05 19:40 Order name: IV Saline Lock; Complete Time: 20:24 cp 05 19:40 Order name: Labs collected and sent; Complete Time: 20:24 cp 03/27 19:40 Order name: Urine Dipstick-Ancillary (obtain specimen); Complete Time: 21:43 cp 03/27 19:40 Order name: EKG; Complete Time: 19:41 cp 03/27 19:40 Order name: EKG - Nurse/Tech; Complete Time: 20:25 cp 05/05 21:30 Order name: PO challenge; Complete Time: 21:57 cp EC:17 Rate is 81 beats/min. Rhythm is regular. AK interval is normal. QRS interval is normal. cp QT interval is normal. T waves are Inverted in lead aVR. Interpreted by me. Reviewed by me. Administered Medications: 20:18 Drug: NS 0.9% 1000 ml Route: IV; Rate: 1 bolus; Site: right antecubital; ll3 23:05 Follow up: Response: No adverse reaction; IV Status: Completed infusion; IV Intake: ll3 1000ml 20:20 Drug: Pepcid (famotidine) 20 mg Route: IVP; Site: right antecubital; ll3 21:45 Follow up: Response: No adverse reaction tw5 20:25 Drug: Zofran (Ondansetron) 4 mg Route: IVP; Site: right antecubital; ll3 21:45 Follow up: Response: No adverse reaction; Marked relief of symptoms tw5 20:25 Drug: morphine 4 mg Route: IVP; Site: right antecubital; ll3 21:44 Follow up: Response: No adverse reaction tw5 21:55 Drug: morphine 4 mg Route: IVP; Site: right antecubital; ll3 23:04 Follow up: Response: No adverse reaction ll3 Disposition: 03/28 00:15 Co-signature as Attending Physician, José Miguel Rooney MD I agree with the assessment and kdr plan of care. Disposition Summary: 03/27/22 22:42 Discharge Ordered Location: Home cp Problem: an acute exacerbation cp Symptoms: have improved cp Condition: Stable cp Diagnosis - Nausea with vomiting, unspecified cp - Other chronic pancreatitis cp Followup: cp - With: Brandan Santos MD - When: 2 - 3 days - Reason: Recheck today's complaints Discharge Instructions: - Discharge Summary Sheet cp - Nausea and Vomiting, Adult cp - Chronic Pancreatitis cp Forms: - Medication Reconciliation Form cp - Thank You Letter cp - Antibiotic Education cp - Prescription Opioid Use cp - Work release form ll3 Prescriptions: - Protonix 40 mg Oral Tablet - take 1 tablet by ORAL route once daily; 30 tablet; Refills: 0, Product cp Selection Permitted - promethazine 25 mg Oral Tablet - take 1 tablet by ORAL route every 6 hours As needed; 20 tablet; Refills: 0, cp Product Selection Permitted Signatures: Dispatcher [employer] EDNM Ze Penaloza MD MD cha Rittger, Kevin, MD MD kdr Cinthya Gordillo RN RN lp1 Ze Romero PA PA cp Wood, Tiffany tw5 Oly Chery RN RN ll3 Allyson Land PA PA sb3 Corrections: (The following items were deleted from the chart) 03/27 20:54 20:54 Normal except: NA 135; GLUC 267. cp cp
--- NOTE | 2022-03-27 22:43 | ER ---
Nurse's Notes [facility] Name: Magno Estrella III Age: 51 yrs Sex: Male : 1970 Arrival Date: 03/27/2022 Time: 19:12 Bed 8 Private MD: Diagnosis: Nausea with vomiting, unspecified;Other chronic pancreatitis Presentation: 03/27 19:23 Chief complaint: Patient states: "I think my pancreas is flaring up"; Reports pain to lp1 upper abdomen that began today and nausea, hx of pancreatitis related to high triglycerides. Coronavirus screen: At this time, the client does not indicate any symptoms associated with coronavirus-19. Ebola Screen: No symptoms or risks identified at this time. Initial Sepsis Screen: Does the patient meet any 2 criteria? No. Patient's initial sepsis screen is negative. Does the patient have a suspected source of infection? No. Patient's initial sepsis screen is negative. Risk Assessment: Do you want to hurt yourself or someone else? Patient reports no desire to harm self or others. Onset of symptoms was March 27, 2022. 19:23 Method Of Arrival: Ambulatory lp1 19:23 Acuity: AJCOBO 3 lp1 Historical: - Allergies: 19:24 No Known Allergies; lp1 - Home Meds: 19:24 insulin 70/30 55 unit daily [Active]; metformin 1,000 mg Oral tab 1 tab daily [Active]; lp1 lisinopril 20 mg Oral tab 1 tab once daily [Active]; - PMHx: 19:24 diabetes mellitus; Hypertensive disorder; Pancreatitis; High Triglycerides; lp1 - PSHx: 19:24 None; lp1 - Immunization history:: Adult Immunizations up to date. - Social history:: Smoking status: Patient denies any tobacco usage or history of. Patient uses street drugs, marijuana. Screenin:37 Abuse screen: Denies threats or abuse. Nutritional screening: No deficits noted. ll3 Tuberculosis screening: No symptoms or risk factors identified. 21:59 Fall Risk No fall in past 12 months (0 pts). No secondary diagnosis (0 pts). IV access ll3 (20 points). Ambulatory Aid- None/Bed Rest/Nurse Assist (0 pts). Gait- Normal/Bed Rest/Wheelchair (0 pts) Mental Status- Oriented to own ability (0 pts). Total Ennis Fall Scale indicates No Risk (0-24 pts). Assessment: 19:37 General: Appears uncomfortable, Behavior is calm, cooperative. Pain: Complains of pain ll3 in epigastric area Pain does not radiate. Pain currently is 10 out of 10 on a pain scale. Pain began Yesterday Is continuous, Aggravated by Sitting up Noted to be guarding, Also complains of nausea. Neuro: Level of Consciousness is awake, alert, obeys commands, Oriented to person, place, time, situation. GI: Abdomen is round non-distended, Stools are reported to be constipated. Last BM was March 27, 2022. Bowel sounds hyperactive in right upper quadrant, left upper quadrant, right lower quadrant and left lower quadrant Abd is soft X 4 quads Abd is non tender in right upper quadrant, left upper quadrant, right lower quadrant and left lower quadrant Abdomen is tender to palpation in epigastric area Guarding noted in epigastric area. GI: Reports vomiting, States vomit is foamy since yesterday. Derm: Skin is pink, warm \\T\\ dry. 20:31 Reassessment: Patient and/or family updated on plan of care and expected duration. Pain ll3 level reassessed. Patient is alert, oriented x 3, equal unlabored respirations, skin warm/dry/pink. 21:57 Reassessment: Patient and/or family updated on plan of care and expected duration. Pain ll3 level reassessed. Patient is alert, oriented x 3, equal unlabored respirations, skin warm/dry/pink. PO challenge tolerated well, Ze MILLS, notified. Vital Signs: 19:23 BP 163 / 103; Pulse 97; Resp 18; Temp 98.5(O); Pulse Ox 100% on R/A; Weight 110.68 kg; lp1 Height 5 ft. 11 in. (180.34 cm); Pain 10/10; 20:31 BP 171 / 99; Pulse 78; Resp 16; Pulse Ox 100% on R/A; ll3 21:57 BP 157 / 97; Pulse 80; Resp 17; Pulse Ox 98% on R/A; ll3 19:23 Body Mass Index 34.03 (110.68 kg, 180.34 cm) lp1 ED Course: 19:12 Patient arrived in ED. bp1 19:15 Ze Romero PA is PHCP. cp 19:15 eZ Penaloza MD is Attending Physician. cp 19:24 Triage completed. lp1 19:24 Arm band placed on. lp1 19:37 Patient has correct armband on for positive identification. Bed in low position. Call ll3 light in reach. Side rails up X 1. 19:41 José Miguel Rooney MD is Attending Physician. cp 20:27 Oly Chery RN is Primary Nurse. ll3 20:45 CT Abd/Pelvis - IV Contrast Only In Process Unspecified. EDMS 21:59 Inserted saline lock: 20 gauge in right antecubital area, using aseptic technique. ll3 Blood collected. 22:41 Brandan Santos MD is Referral Physician. cp 22:59 No provider procedures requiring assistance completed. ll3 23:04 IV discontinued, intact, bleeding controlled, No redness/swelling at site. Pressure ll3 dressing applied. Administered Medications: 20:18 Drug: NS 0.9% 1000 ml Route: IV; Rate: 1 bolus; Site: right antecubital; ll3 23:05 Follow up: Response: No adverse reaction; IV Status: Completed infusion; IV Intake: ll3 1000ml 20:20 Drug: Pepcid (famotidine) 20 mg Route: IVP; Site: right antecubital; ll3 21:45 Follow up: Response: No adverse reaction tw5 20:25 Drug: Zofran (Ondansetron) 4 mg Route: IVP; Site: right antecubital; ll3 21:45 Follow up: Response: No adverse reaction; Marked relief of symptoms tw5 20:25 Drug: morphine 4 mg Route: IVP; Site: right antecubital; ll3 21:44 Follow up: Response: No adverse reaction tw5 21:55 Drug: morphine 4 mg Route: IVP; Site: right antecubital; ll3 23:04 Follow up: Response: No adverse reaction ll3 Intake: 23:05 IV: 1000ml; Total: 1000ml. ll3 Outcome: 22:42 Discharge ordered by . cp 23:04 Discharged to home ambulatory. ll3 23:04 Condition: stable 23:04 Discharge instructions given to patient, Instructed on discharge instructions, follow up and referral plans. medication usage, Demonstrated understanding of instructions, follow-up care, medications, Prescriptions given X 2. 23:04 Patient left the ED. ll3 Signatures: Dispatcher [employer] EDMS Cinthya Gordillo, RN RN lp1 Ze Romero PA PA cp [place]ia[place], Brittany bp1 Wood, Tiffany tw5 Oly Chery RN RN ll3
[2022-03-27 23:19] VITALS: TEMP 98.5
[2022-03-27 23:22] VITALS: BP 157/97; O2SAT 98
--- NOTE | 2022-03-28 14:33 | EKG ---
Test Date: 2022-03-27 Test Time: 20:13:56 Telecommunications Analyst: JACKIE MEASUREMENT RESULTS: Intervals: Rate: 81 AK: 138 QRSD: 84 QT: 380 QTc: 441 Dora: P: 55 AK: 138 QRS: 30 T: 54 INTERPRETIVE STATEMENTS: Normal sinus rhythm Normal ECG Compared to ECG 06/26/1998 16:02:00 No significant changes Electronically Signed On 03-28-22 14:32:14 CDT by Roger Block
== END 2022-03-27 23:04 | disposition home or self-care (01) ==
LOC: ER 19:10
DX: K86.1 Other chronic pancreatitis (principal); I10 Essential (primary) hypertension; E11.9 Type 2 diabetes mellitus without complications; Z79.4 Long term (current) use of insulin
CPT/HCPCS: 36415; 74177; 80053; 80307; 81003; 81015; 82565; 83690; 83735; 84484; 85025; 93005; 96361; 96374; 96375; 99284; J2405; J3490; J7030; Q9967

== ENCOUNTER 2022-04-09 22:18 | Emergency (ER) | payer SELFPAY ==
--- NOTE | 2022-04-09 23:10 | EDPHYS ---
Physician Documentation [facility] Name: Magno Estrella III Age: 51 yrs Sex: Male : 1970 Arrival Date: 04/09/2022 Time: 22:54 Bed 6 Private MD: ED Physician Glen Cruz HPI: 04/09 23:06 This 51 yrs old Male presents to ER via Ambulatory with complaints of jmm Abdominal Pain, Vomiting/Diarrhea. 23:06 The patient presents with abdominal pain. Onset: The symptoms/episode began/occurred jmm this morning. The symptoms do not radiate. Associated signs and symptoms: Pertinent positives: diarrhea, vomiting. The symptoms are described as crampy. This is a 51-year-old male with history diabetes mellitus, hyperlipidemia, hypertension the presents emerged department with complaints of vomiting diarrhea beginning earlier today after eating Lao food. Patient states now is able to tolerate Sprite while waiting in the ED. Patient was looking to get a work excuse.. Historical: - Allergies: 23:11 No Known Allergies; jb4 - PMHx: 23:11 diabetes mellitus; High Triglycerides; Hypertensive disorder; Pancreatitis; jb4 - Immunization history:: Adult Immunizations up to date. - Social history:: Smoking status: Patient/guardian denies using tobacco. ROS: 23:06 Constitutional: Negative for fever, chills, and weight loss, Cardiovascular: Negative jmm for chest pain, palpitations, and edema, Respiratory: Negative for shortness of breath, cough, wheezing, and pleuritic chest pain. 23:06 Abdomen/GI: Positive for vomiting, diarrhea. 23:06 All other systems are negative. Exam: 23:06 Constitutional: This is a well developed, well nourished patient who is awake, alert, jmm and in no acute distress. Head/Face: atraumatic. Eyes: EOMI, no conjunctival erythema appreciated ENT: Moist Mucus Membranes Neck: Trachea midline, Supple Chest/axilla: Normal chest wall appearance and motion. Cardiovascular: Regular rate and rhythm. No edema appreciated Respiratory: Normal respirations, no respiratory distress appreciated 23:06 Back: Normal ROM Skin: General appearance color normal MS/ Extremity: Moves all extremities, no obvious deformities appreciated, no edema noted to the lower extremities Neuro: Awake and alert Psych: Behavior is normal, Mood is normal, Patient is cooperative and pleasant 23:06 Abdomen/GI: Inspection: abdomen appears normal, Bowel sounds: normal, Palpation: soft, nontender, in all quadrants. Vital Signs: 23:05 BP 145 / 106; Pulse 86; Resp 16; Pulse Ox 97% on R/A; Weight 110.68 kg (R); Height 5 jb4 ft. 11 in. (180.34 cm) (R); Pain 5/10; 23:05 Body Mass Index 34.03 (110.68 kg, 180.34 cm) jb4 MDM: 23:06 Patient medically screened. [facility] 23:09 Refusal of service: The patient/guardian displays adequate decision making capability [facility] and despite a detailed discussion of alternatives, benefits, risks, and consequences refuses: all lab tests. 23:15 Data reviewed: vital signs, nurses notes. ED course: Patient is alert nontoxic in [facility] appearance NAD. No abdominal pain on palpation. Patient declined labs and antiemetics and IV fluids. Patient otherwise given strict return precautions. Patient understood agrees plan of care. Administered Medications: 23:22 Not Given (Patient Refused): NS 0.9% 1000 ml IV at 1 bolus Per protocol; 1000 mL bolus ll3 23:22 Not Given (Patient Refused): Zofran (Ondansetron) 4 mg IVP once; over 2 minutes ll3 Disposition: 04/10 00:28 Co-signature as Attending Physician, Glen Cruz MD. rn Disposition Summary: 04/09/22 23:10 Discharge Ordered Location: Home [facility] Condition: Stable [facility] Diagnosis - Vomiting m - Diarrhea, unspecified [facility] Followup: [facility] - With: Private Physician - When: 2 - 3 days - Reason: Recheck today's complaints, Continuance of care, Re-evaluation by your physician Discharge Instructions: - Food Choices to Help Relieve Diarrhea, Adult jmm - Diarrhea, Adult [facility] - Discharge Summary Sheet mw2 - Vomiting, Adult [facility] Forms: - Medication Reconciliation Form [facility] - Thank You Letter [facility] - Antibiotic Education [facility] - Prescription Opioid Use [facility] - Work release form mw2 Prescriptions: - ondansetron 4 mg Oral tablet,disintegrating - take 1 tablet by ORAL route every 4-6 hours As needed; 20 tablet; Refills: 0, [facility] Product Selection Permitted Signatures: Dispatcher [employer] EDMS MickaJd mejia PA PA jmm Nieto, Roman, MD MD rn Madi Link RN RN jb4 Oly Chery RN ll3 Corrections: (The following items were deleted from the chart) 04/09 23:07 IV Saline Lock ordered. [place] ll3 23: Labs collected and sent ordered. [facility] ll3
--- NOTE | 2022-04-09 23:25 | ER ---
Nurse's Notes [facility] Name: Magno Estrella III Age: 51 yrs Sex: Male : 1970 Arrival Date: 04/09/2022 Time: 22:54 Bed 6 Private MD: Diagnosis: Vomiting;Diarrhea, unspecified Presentation: 04/09 23:05 Chief complaint: Patient states: I ate left overs yesterday and have been vomiting and jb4 having diarrhea since. Coronavirus screen: At this time, the client does not indicate any symptoms associated with coronavirus-19. Ebola Screen: No symptoms or risks identified at this time. Initial Sepsis Screen: Does the patient meet any 2 criteria? No. Patient's initial sepsis screen is negative. Does the patient have a suspected source of infection? No. Patient's initial sepsis screen is negative. Risk Assessment: Do you want to hurt yourself or someone else? Patient reports no desire to harm self or others. Onset of symptoms was April 09, 2022. Transition of care: patient was not received from another setting of care. 23:05 Method Of Arrival: Ambulatory jb4 23:05 Acuity: JACOBO 3 jb4 Triage Assessment: 23:30 General: Appears in no apparent distress. Behavior is calm, cooperative. Pain: Denies as6 pain. Historical: - Allergies: 23:11 No Known Allergies; jb4 - PMHx: 23:11 diabetes mellitus; High Triglycerides; Hypertensive disorder; Pancreatitis; jb4 - Immunization history:: Adult Immunizations up to date. - Social history:: Smoking status: Patient/guardian denies using tobacco. Screenin:28 Abuse screen: Denies threats or abuse. Denies injuries from another. Nutritional as6 screening: No deficits noted. Tuberculosis screening: No symptoms or risk factors identified. Fall Risk None identified. Assessment: 23:10 General: Appears in no apparent distress. Behavior is calm, cooperative. as6 23:10 Pain: Denies pain. Neuro: Level of Consciousness is awake, alert, obeys commands, as6 Oriented to person, place, time, situation. Cardiovascular: JVD is absent Patient's skin is warm and dry. Respiratory: Respiratory effort is even, unlabored, Respiratory pattern is regular, symmetrical. GI: Reports diarrhea, nausea, vomiting. Vital Signs: 23:05 BP 145 / 106; Pulse 86; Resp 16; Pulse Ox 97% on R/A; Weight 110.68 kg (R); Height 5 jb4 ft. 11 in. (180.34 cm) (R); Pain 5/10; 23:05 Body Mass Index 34.03 (110.68 kg, 180.34 cm) jb4 ED Course: 22:54 Patient arrived in ED. ja2 23:01 Rasheed Stockton, RN is Primary Nurse. as6 23:06 Jd Browning PA is PHCP. [facility] 23:06 Glen Cruz MD is Attending Physician. [facility] 23:11 Triage completed. jb4 23:11 Arm band placed on right wrist. jb4 23:28 Placed in gown. Bed in low position. Call light in reach. Pulse ox on. NIBP on. as6 23:30 No provider procedures requiring assistance completed. Patient did not have IV access as6 during this emergency room visit. Administered Medications: 23:22 Not Given (Patient Refused): NS 0.9% 1000 ml IV at 1 bolus Per protocol; 1000 mL bolus ll3 23:22 Not Given (Patient Refused): Zofran (Ondansetron) 4 mg IVP once; over 2 minutes ll3 Medication: 23:29 VIS not applicable for this client. as6 Outcome: 23:10 Discharge ordered by . [facility] 23:25 Patient left the ED. jb4 23:30 Discharged to home ambulatory. as6 23:30 Condition: stable 23:30 Discharge instructions given to patient, Instructed on discharge instructions, follow up and referral plans. medication usage, Demonstrated understanding of instructions, follow-up care, medications, Prescriptions given X 1. Signatures: Jd Browning PA PA Madi Lopez, RN RN jb4 Britt Perez 2 Rasheed Stockton, RN RN as6 Oly Chery RN ll3
[2022-04-09 23:39] VITALS: BP 145/106; O2SAT 97
== END 2022-04-09 23:25 | disposition home or self-care (01) ==
LOC: ER 22:18
DX: R11.10 Vomiting, unspecified (principal); R19.7 Diarrhea, unspecified; E11.9 Type 2 diabetes mellitus without complications; I10 Essential (primary) hypertension
CPT/HCPCS: 99283

== ENCOUNTER 2023-04-09 11:13 | Emergency (ER) | payer OTHER, SELFPAY ==
[2023-04-09] MEDS ORDERED: KETOROLAC 30 MG/ML INJ ONE (11:32)
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
[2023-04-09 12:23] VITALS: TEMP 97.7; O2SAT 100
[2023-04-09 12:25] VITALS: BP 163/103
== END 2023-04-09 12:11 | disposition home or self-care (01) ==
LOC: ER 11:13
DX: M54.50 Low back pain, unspecified (principal)
CPT/HCPCS: 96372; 99284